=== PATIENT | male | born 1965 | race Caucasian/White ===

== ENCOUNTER 2022-12-14 14:37 | Emergency (ER) | payer SELFPAY ==
[~2022-12-14] VITALS: Ht 172.7 cm; Wt 84.0 kg
[2022-12-14] MEDS ORDERED: NAPROXEN500 MG PO (16:08)
[2022-12-14] MEDS ORDERED: CLINDAMYCIN HY150 MG PO (16:08)
[2022-12-14 16:13] VITALS: BP 127/72
== END 2022-12-14 16:17 | disposition home or self-care (01) | DRG 159 ==
LOC: ED 14:37
DX: K04.7 Periapical abscess without sinus (principal); K02.9 Dental caries, unspecified; I10 Essential (primary) hypertension; F41.9 Anxiety disorder, unspecified